=== PATIENT | male | born 1945 | race Caucasian/White ===

== ENCOUNTER 2021-07-04 10:03 | Emergency (ER) | payer OTHER, BC, SELFPAY ==
[2021-07-04 10:16] VITALS: BP 151/81; PULSE 70; RESP 18; TEMP 36.8; O2SAT 99
--- NOTE | 2021-07-04 10:20 | ED.GENADULT ---
HPI - General Adult General Chief complaint: Urogenital-Male Stated complaint: urinary problem Time Seen by Provider: 07/04/21 10:08 Source: patient Mode of arrival: ambulatory Limitations: no limitations History of Present Illness HPI narrative: 75 y/o male. PMHx: HLD. Presents to [facility] today with acute complaints of continued urinary frequency, pressure type sensation when voiding, as well as dysuria for the past 1 week. Denies fever, chills. No abdominal pain, N/V, Flank pain. Denies Penile discharge, testicular swelling, risk for venereal Dx. No hematuria. Pt is without additional acute c/o illness upon exam. Related Data Allergies Allergy/AdvReac Type Severity Reaction Status Date / Time house dust Allergy Unknown Unknown Verified 07/04/21 10:22 No Known Drug Allergies Allergy Other Verified 07/04/21 10:22 Review of Systems Review of Systems: CONSTITUTIONAL: Denies fever, chills, sweats. EYES: Denies visual changes, redness, discharge. ENT: Denies rhinorrhea, congestion, sore throat, otalgia. CARDIOVASCULAR: Denies chest pain, palpitations, edema. RESPIRATORY: Denies dyspnea, wheezing, cough GASTROINTESTINAL: Denies abdominal pain, nausea, vomiting, diarrhea. GENITOURINARY: Positive frequency & dysuria. No hematuria, abnormal discharge SKIN: Denies rash or itching. MUSCULOSKELETAL: Denies acute back pain, joint pain, or myalgia. NEUROLOGIC: Denies numbness, or focal weakness. PSYCHIATRIC: Denies anxiety or depression. All systems reviewed & are unremarkable except as noted in HPI and below PMFSH Social History Social History Second hand tobacco smoke exposure: No Smoking end date: 10/12/11 Alcohol intake: current Exam Narrative: GENERAL: This is a well-nourished, well-developed adult, in no apparent distress. HEAD: normocephalic, atraumatic. EYES: PERRL. Sclera clear/white. EARS: External ears normal, auditory canals clear and without drainage, TMs normal. NOSE: External nose normal. Positive Rhinorrhea, no obstruction, nares patent. THROAT: Mucous membranes moist, posterior pharynx clear. No exudates. NECK: Neck supple, non-tender without lymphadenopathy, masses or thyromegaly. CARDIOVASCULAR: Regular rate and rhythm without murmurs, gallops, or rubs. RESPIRATORY: Clear to auscultation. Breath sounds equal bilaterally. No wheezes, rales, or rhonchi. GASTROINTESTINAL: Abdomen soft, non-tender, nondistended. Bowel sounds are active. No guarding. No CVA tenderness. SKIN: warm, intact with no suspicious lesions or rash, good texture and turgor. NEURO: Alert, active, and age appropriate. No focal neurologic deficits. Course Vital Signs Vital signs: Vital Signs Temperature 36.8 C 07/04/21 10:16 Pulse Rate 70 07/04/21 10:16 Respiratory Rate 18 07/04/21 10:16 Blood Pressure 151/81 H 07/04/21 10:16 Pulse Oximetry 99 07/04/21 10:16 Temperature 36.8 C 07/04/21 10:16 Pulse Rate 70 07/04/21 10:16 Respiratory Rate 18 07/04/21 10:16 Blood Pressure 151/81 H 07/04/21 10:16 Pulse Oximetry 99 07/04/21 10:16 The patient has been informed that they may have pre-hypertension or Hypertension based on a BP reading in the clinic. It is recommended that the patient call the primary care provider listed on their discharge instructions or a physician of their choice as soon as possible (within 1-2week) to arrange follow up for further evaluation of possible pre-hypertension or hypertension. Medical Decision Making MDM Narrative Medical decision making narrative: -Appears non-toxic. -Reports no concern or want of venereal Dx testing. -Urine Dipstick positive 2+ leukocytes on today's exam. -Start Cipro for urinary bladder and suspect Cystitis coverage. -Pyridium prn. -PCP F/U 1 WK. -ER W/Emergent health status changes. Pt agrees. Differential Diagnosis Differential Diagnosis: Differential Diagnosis:
== END 2021-07-04 10:56 | disposition home or self-care (01) ==
PROVIDERS: Emergency Provider Nurse Practitioner Adult Health
DX: N30.00 Acute cystitis without hematuria (principal); E78.5 Hyperlipidemia, unspecified
CPT/HCPCS: 81003; 87077; 87086; 87088; 87186; 99213; G0463

== ENCOUNTER 2024-01-15 11:19 | Emergency (ER) | payer BC, OTHER, SELFPAY ==
--- NOTE | ~2024-01-15 | CT_ITS ---
EXAMINATION: CT brain wo con DATE: 01/15/2024 13:47 INDICATION: Head injury. TECHNIQUE: Computed tomography (CT) of the head was performed without intravenous contrast. The mA wa s adjusted according to patient size. Iterative reconstruction technique was employed. The dose-lengt h product was 605.33 mGy-cm. COMPARISON: None FINDINGS: There are scattered areas of low attenuation in the cerebral white matter and the bilateral basal ganglia. There is no intracranial hemorrhage, acute infarction, or abnormal intracranial mass lesion. The ventricles are normal in size. The orbits are normal. There is mucosal thickening in the paranasal sinuses. The mastoid air cells are normal. IMPRESSION: 1. Mild nonspecific cerebral white matter disease and disease of the bilateral basal ganglia, which l ikely represents chronic small vessel ischemic disease. Reviewed, dictated and finalized at location A. IMPRESSION: 1. Mild nonspecific cerebral white matter disease and disease of the bilateral basal ganglia, which likely represents chronic small vessel ischemic disease.
--- NOTE | ~2024-01-15 | CT_ITS ---
. EXAMINATION: CT facial bones wo con DATE: 01/15/2024 13:47 INDICATION: Face injury. TECHNIQUE: Computed tomography (CT) of the facial bones and maxillofacial region was performed withou t intravenous contrast. Automated exposure control and iterative reconstruction technique were employ ed. The dose-length product was 287.02 mGy-cm. COMPARISON: None. FINDINGS: There is rightward deviation of the nasal septum. There is mucosal thickening in the parana logan sinuses. No fracture. There are radiopaque foreign bodies in the upper lip. 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 There is severe cervical spondylosis. IMPRESSION: 1. Radiographic foreign bodies in the upper lip. Reviewed, dictated and finalized at location A.
[2024-01-15 11:25] VITALS: BP 139/73; PULSE 90; RESP 18; TEMP 36.6; O2SAT 94
--- NOTE | 2024-01-15 13:33 | ED.GENADULT ---
HPI - General Adult General Chief complaint: Wound/Laceration Stated complaint: Busted lip from a fall Time Seen by Provider: 01/15/24 13:14 History of Present Illness HPI narrative: 78-year-old male presenting to the emergency department for evaluation for the facial injury. Patient reports he was at a gym class and was running when he had a fall and struck his face. Resulting in a laceration to his upper lip. Patient also has complaint of left hand pain. Patient denies any other pain or injury. Patient denies any loss of consciousness. Related Data Home Medications Medication Instructions Recorded Confirmed acetaminophen PO PRN 12/03/22 12/03/22 cholecalciferol (vitamin D3) PO 12/03/22 12/03/22 Allergies Allergy/AdvReac Type Severity Reaction Status Date / Time house dust Allergy Unknown Unknown Verified 01/15/24 12:17 Pet dander Allergy Mild Sneezing Uncoded 01/15/24 12:17 Review of Systems Review of Systems: All systems reviewed & are unremarkable except as noted in HPI and below PMFSH Past Medical History Medical History (Updated 01/15/24 @ 15:36 by Edi Short MD) BPH (benign prostatic hyperplasia) Elevated BP without diagnosis of hypertension Encounter to establish care Hyperlipidemia Thyroid disorder Surgical History Surgical History (Updated 12/03/22 @ 09:09 by MAYITO Morales) History of parathyroid surgery Family History Family History (Updated 12/03/22 @ 08:56 by MAYITO Morales) Mother Diabetes mellitus Hypertension Father Heart disease Hypertension Diabetes mellitus Social History Social History (Updated 12/03/22 @ 09:03 by MAYITO Morales) Smoking status: Current some day smoker Tobacco type: cigars Second hand tobacco smoke exposure: No Alcohol intake: current Alcohol use details: Wine at dinner Substance use: never Substance use type: does not use Exam Narrative: APPEARANCE: Well appearing, no pain, no distress, well-nourished. HEAD: normocephalic, atraumatic. EYES: PERRLA/EOMI, conjunctivae clear. NOSE: Normal no drainage EARS:TMS clear with good light reflex. THROAT: Pharynx clear, no exudate. NECK: Supple. No adenopathy, no masses. RESPIRATORY: Airway patent, respirations nonlabored. Clear to auscultation bilaterally, no rales, rhonchi, wheezing. CARDIOVASCULAR: Regular rate and rhythm without murmurs rubs or gallops. ABDOMINAL: Soft, nontender, nondistended, normal bowel sounds MUSCULOSKELETAL: contusion to left hand NEURO: Alert. Cranial nerves II through XII intact. Good gait. Good coordination SKIN: Lip laceration Course Course Emergency Course: Patient was discharged to home with instructions for close outpatient follow-up Vital Signs Vital signs: Vital Signs Temperature 97.8 F 01/15/24 11:25 Pulse Rate 90 01/15/24 11:25 Respiratory Rate 18 01/15/24 11:25 Blood Pressure 139/73 01/15/24 11:25 Pulse Oximetry 94 01/15/24 11:25 Oxygen Delivery Room Air 01/15/24 11:25 Temperature 97.8 F 01/15/24 11:25 Pulse Rate 79 01/15/24 14:46 Respiratory Rate 18 01/15/24 14:46 Blood Pressure 149/87 H 01/15/24 14:46 Pulse Oximetry 97 01/15/24 14:46 Oxygen Delivery Room Air 01/15/24 11:25 Procedures Laceration Laceration 1: Site: face and lip Side (If applicable): left Size (cm): 1 Description: linear and flap Depth: simple, single layer Local Anesthetic: lidocaine 1% Amount of anesthesia used (mL): 2 Pre-repair: wound explored and irrigated ====== Skin Level ====== Skin layer closed with: prolene Size (cm): 6-0 Number of sutures: 2 Technique: simple, interrupted ====== Subcutaneous Layer ====== ====== Muscle Layer ====== ====== Tendon Layer ====== Medical Decision Making [facility] Narrative Medical decision making narrative: 78-year-old male presents to the
[2024-01-15 14:46] VITALS: BP 149/87; PULSE 79; RESP 18; O2SAT 97
== END 2024-01-15 15:45 | disposition home or self-care (01) ==
PROVIDERS: Emergency Provider Emergency Medicine; PCP Nurse Practitioner Family
DX: S01.511A Laceration without foreign body of lip, initial encounter (principal); W19.XXXA Unspecified fall, initial encounter; E78.5 Hyperlipidemia, unspecified; E07.9 Disorder of thyroid, unspecified
CPT/HCPCS: 12011; 70450; 70486; 99284